=== PATIENT | female | born 1975 | race African-American/Black ===

== ENCOUNTER → 2021-01-05 | Outpatient (CLI) | payer OTHER ==
[~2021-01-05] MED LIST: ALLER-CHLOR4 MG PO; ATENOLOL25 MG PO; COZAAR100 MG PO; FLEXERIL10 MG PO; FOLIC ACID1 MG PO; KLOR-CON M1010 MEQ PO; METHOTREXATE2.5 M2 PO; MOTRIN800 MG PO; NIT0.3 SL; OMEPRAZOLE DR20 M1 PO; PROAIR HFA0.09 MG/A1 IH; QVAR0.08 MG/Ac IH; SERTRALINE100 M1 PO; VERAMYST27.5 MCG/1
== END | disposition home or self-care (01) ==
LOC: RD 16:28
PROVIDERS: ATTEND Orthopaedic Surgery
DX: M25.561 Pain in right knee (principal); M79.661 Pain in right lower leg

== ENCOUNTER → 2021-02-02 | Outpatient (CLI) | payer OTHER | END | disposition home or self-care (01) | LOC: RD 14:49 | PROVIDERS: ATTEND Orthopaedic Surgery | DX: M25.571 Pain in right ankle and joints of right foot (principal); M79.661 Pain in right lower leg ==